=== PATIENT | female | born 1980 | race Two or more races ===

== ENCOUNTER 2024-05-24 19:12 | Emergency (ER) | payer MEDICAID, SELFPAY ==
[2024-05-24 19:12] VITALS: BMI 26.2
[2024-05-24 20:16] VITALS: BP 152/85; PULSE 91; RESP 17; TEMP 36.7; O2SAT 100
--- NOTE | 2024-05-24 20:32 | XR_ITS ---
Examination: Abdomen sonogram, Limited Date and time of exam: May 24, 20245 hrs. Indications: Epigastric pain vomiting beginning 2 days ago, cholecystectomy Technique: Real-time payne scale transabdominal sonographic images of the upper abdomen obtained. Findings: Absent gallbladder Normal common bile duct 0.3 cm Pancreatic head 2.8 cm Liver 14 cm fatty infiltration no focal liver lesions Normal hepatopedal portal venous flow Patent IVC Impression: Normal common bile duct Liver normal size no focal liver lesions
--- NOTE | 2024-05-24 20:32 | PD.EDRME ---
Rapid Medical Screening Exam RME Arrival date/time: 05/24/24 19:12 43-year-old female reports with complaints of 2 days of epigastric abdominal pain and bloating Chief Complaint: Abdominal Pain Time Seen by Provider: 05/24/24 19:24 Vital signs: Vital Signs Temperature 98.1 F 05/24/24 20:16 Pulse Rate 91 05/24/24 20:16 Respiratory Rate 17 05/24/24 20:16 Blood Pressure 152/85 H 05/24/24 20:16 Pulse Oximetry (%) 100 05/24/24 20:16 Oxygen Delivery Method Room Air 05/24/24 20:16
[2024-05-24 20:55] LABS: Collection Type, Urine Clean Catch
[2024-05-24 20:58] LABS: Basophils % (Auto) 0 % (0-2.5); Eosinophils # (Auto) 0.1 Thou/mm3 (0.0-0.5); Eosinophils % (Auto) 1 % (0-10); Hemoglobin 13.7 g/dL (12.0-16.0); Immature Granulocytes % (Auto) 1 % (0-0); Immature Granulocytes Auto 0.08 Thou/mm3 (0.00-0.00); Lymphocytes # (Auto) 2.3 Thou/mm3 (1.0-4.8); Lymphocytes % (Auto) 15 % (10-50); Mean Corpuscular HGB Conc 34.3 g/dl (31.0-37.0); Mean Corpuscular Hemoglobin 30.5 pg (25.0-35.0); Mean Corpuscular Volume 89 fL (80-100); Monocytes # (Auto) 0.9 Thou/mm3 (0.0-0.8); Monocytes % (Auto) 6 % (0-12); Neutrophils # (Auto) 12.2 Thou/mm3 (1.8-7.7); Neutrophils % (Auto) 78 % (37-80); Nucleated Red Blood Cell % 0 /100 WBC (0); Platelet Count 366 Thou/mm3 (140-440); RDW Standard Deviation 41.1 fL (36.4-46.3); Red Blood Count 4.49 Miln/mm3 (4.00-5.20); White Blood Count 15.6 Thou/mm3 (3.6-11.0)
[2024-05-24 21:08] LABS: HCG,Qualitative Serum Negative
[2024-05-24 21:12] LABS: Bacteria,Urine Rare; Bilirubin,Urine Negative (Negative); Blood,Urine Negative (Negative); Clarity,Urine Clear (Clear/Hazy); Color,Urine Lt-Yellow (Lt Yel-Yel); Culture Indicated,Urine Not Indicated; Glucose, Urine Negative (Negative); Ketones,Urine Negative (Negative); Leukocyte Esterase,Urine Negative (Negative); Nitrite,Urine Negative (Negative); PH,Urine 6.5 (5.0-7.0); Protein,Urine Trace (Neg - Trace); RBC,Urine 2 /hpf (0-3); Specific Gravity,Urine 1.028 (1.001-1.035); Squamous Epithelial Cell,Urine 5 /hpf (0-5); Urobilinogen,Urine Negative mg/dL (0.0-1.0); WBC,Urine 1 /hpf (0-5)
[2024-05-24 21:12] LABS: Alanine Aminotransferase 20 U/L (10-49); Albumin, Serum 4.1 gm/dL (3.5-5.0); Albumin/Globulin Ratio 1.5 (1.2-2.2); Alkaline Phosphatase 95 U/L (46-116); Anion Gap 5 (7-16); Aspartate Amino Transferase 17 U/L (0-34); BUN/Creatinine Ratio 25 Ratio (12-20); Bilirubin,Total 0.4 mg/dL (0.3-1.2); Blood Urea Nitrogen 15 mg/dL (9-23); Calcium 9.2 mg/dL (8.3-10.6); Calcium (Corrected) 9.2 mg/dL (8.5-10.1); Carbon Dioxide 28.6 mMol/L (20.0-31.0); Chloride 107 mMol/L (98-107); Creatinine (Component) 0.6 mg/dL (0.6-1.3); Estimated Creatinine Clearance 94.5 mL/min (>60); Globulin 2.8 gm/dL (2.3-3.5); Glucose 109 mg/dL (74-106); Lipase 67 U/L (12-53); Osmolality,Calculated 283 (275-295); Potassium 4.7 mMol/L (3.4-5.1); Sodium 141 mMol/L (136-145); Total Protein 6.9 gm/dL (5.7-8.2); eGFR > 60 See Note
--- NOTE | 2024-05-24 23:07 | EDNOTE_ITS ---
ED Abdominal Pain RME/HPI General Chief Complaint: Abdominal Pain Stated complaint: UPPER ABD PAIN X 2 DAYS Time seen by provider: 05/24/24 19:24 Arrival date/time: 05/24/24 19:12 43-year-old female past medical history of cholecystectomy presents emergency department complaining of intermittent epigastric pain and bloating for 2 days. Patient describes pain as burning and usually occurs after eating. Source: patient Mode of arrival: ambulatory Limitations: no limitations RME / HPI RME / HPI narrative: 05/24/24 19:12 43-year-old female reports with complaints of 2 days of epigastric abdominal pain and bloating Related Data Previous Rx's ?Medication ?Instructions ?Recorded hydrocodone 5 mg-acetaminophen 325 1 tab PO Q6H #20 tabs 03/16/ mg tablet (Hagerman) ibuprofen 800 mg tablet (IBU) 800 mg PO Q8H #20 tabs 08/08/23 omeprazole 20 mg capsule,delayed 20 mg PO QDAY #30 caps 05/24/24 release Allergies Allergy/AdvReac Type Severity Reaction Status Date / Time No Known Allergies Allergy Verified 05/24/24 19:15 Review of Systems Review of Systems Systems Reviewed: All systems reviewed, normal except as documented Constitutional Constitutional: Reports system reviewed and no additional complaints, except as documented, Denies body ache(s), Denies chills and Denies fever(s) Eyes Eyes: Reports system reviewed and no additional complaints, except as documented and Denies change in vision ENT Ears, Nose, Mouth, and Throat: Reports system reviewed and no additional complaints, except as documented, Denies disequilibrium, Denies dizziness, Denies sore throat and Denies vertigo Cardiovascular Cardiovascular: Reports system reviewed and no additional complaints, except as documented, Denies chest pain and Denies dyspnea Respiratory Respiratory: Reports system reviewed and no additional complaints, except as documented, Denies chest congestion, Denies cough and Denies dyspnea Gastrointestinal Gastrointestinal: Reports system reviewed and no additional complaints, except as documented, Reports abdominal pain, Reports dyspepsia, Denies nausea and Denies vomiting Musculoskeletal Musculoskeletal: Reports system reviewed and no additional complaints, except as documented, Denies abnormal gait and Denies arthralgias Integumentary/Breasts Skin/Breast: Reports system reviewed and no additional complaints, except as documented, Denies erythema, Denies rash and Denies wounds Neurologic Neurologic: Reports system reviewed and no additional complaints, except as documented, Denies abnormal gait, Denies disequilibrium, Denies dizziness and Denies vertigo Past Medical History Past Medical History NEUROLOGIC: Negative Neurological Disorders or Seizures CARDIAC: Negative Cardiac Disorders or Congestive Heart Failure RESPIRATORY: Negative Chronic Obstructive Pulmonary Disease (COPD) GASTROINTESTINAL: Positive Gastrointestinal Disorders and Gall Bladder Disease; Negative Hepatitis or Colorectal Cancer GENITOURINARY: Negative Genitourinary Disorders, Renal Disease or Prostate Cancer REPRODUCTIVE: Negative Breast Cancer or Testicular Cancer MUSCULOSKELETAL: Negative Musculoskeletal Disorders or Bone Cancer ENDOCRINE: Negative Endocrine Disorders, Diabetes Mellitus Type 1 or Diabetes Mellitus Type 2 HEMATOLOGIC: Negative Blood Disorders OTHER HISTORY: Negative Hospitalization, Autoimmune Disease, Down Syndrome, Developmental Delay, Shingles, Falls, Blood Transfusions, Blood Transfusion Reaction, Anesthesia Reactions, Organ Transplant, Chemotherapy, Radiation Therapy, Hyperbaric Therapy, MRSA, VRSA, Vancomycin-Resistant Enterococci, Human Immunodeficiency Virus (HIV), Chicken Pox, Measles, Mumps, Rubella (Portuguese Measles), Pertussis, Clostridium Difficile, Breast Cancer, Cervical Cancer, Colorectal Cancer, Lung Cancer, Ovarian Cancer, Prostate Cancer or Testicular Cancer Family History FAMILY HISTORY: Negative Family Psychiatric Problems, Family Respiratory Disorders, Family Cardiac Disorders, Family Gastrointestinal Problems, Family Cancer, Family Surgery or Family Anesthesia Reaction Surgical History SURGICAL: Negative Section or Organ Transplant Social History SMOKING STATUS: Never smoker SUBSTANCE USE: does not use ED Exam General Limitations: Present no limitations General appearance: Present alert and in no apparent distress Head Head exam: Present atraumatic Eye Eye exam: Present normal appearance, PERRL and EOMI ENT ENT exam: Present normal exam, normal oropharynx and mucous membranes moist Neck Neck exam: Present normal inspection, full ROM and trachea midline Chest Chest inspection: Present normal inspection and symmetric chest wall rise Respiratory Respiratory exam: Present normal lung sounds bilaterally Cardiovascular Cardiovascular exam: Present regular rate, normal rhythm and normal heart sounds Abdominal Exam Abdominal exam: Present soft and normal bowel sounds; Absent tenderness, guarding or tenderness at McBurney's Point Extremities Exam Extremities exam: Present normal inspection and full ROM Back Exam Back exam: Present normal inspection and full ROM Neurological Exam Neurological exam: Present alert, oriented X3 and CN II-XII intact Psychiatric Psychiatric exam: Present normal affect and normal mood Skin Skin exam: Present warm, dry, intact and normal color Course Quality Measures none Orders Category Date Time Status US abdomen limited Stat Exams 05/24/24 20:32 Completed CBC Stat Lab 05/24/24 20:41 Completed CMP [Comprehensive Metabolic Panel] Stat Lab 05/24/24 20:41 Completed HCG,Qualitative Serum Stat Lab 05/24/24 20:41 Completed Lipase Stat Lab 05/24/24 20:41 Completed UA, C/S IF [Urinalysis, C/S if Indicated] Stat Lab 05/24/24 20:51 Completed Famotidine [Pepcid] Med 05/24/24 23:07 Discontinued 40 mg PO X1 ONE Lidocaine 2% Viscous [Xylocaine 2% Viscous] Med 05/24/24 23:07 Discontinued 15 ml PO X1 ONE mg Hyd/Al Hyd/Cheyanne Susp [Maalox Susp] Med 05/24/24 23:07 Discontinued 30 ml PO X1 ONE Vital Signs Vital signs: Vital Signs Temperature 98.1 F 05/24/24 20:16 Pulse Rate 91 05/24/24 20:16 Respiratory Rate 17 05/24/24 20:16 Blood Pressure 152/85 H 05/24/24 20:16 Pulse Oximetry (%) 100 05/24/24 20:16 Oxygen Delivery Method Room Air 05/24/24 20:16 100% room air within normal limits Abdominal Pain MDM MDM Narrative MDM Narrative:: 43-year-old female past medical history of cholecystectomy presents emergency department complaining of intermittent epigastric pain and bloating for 2 days. Patient describes pain as burning and usually occurs after eating. CBC mild leukocytosis 15.6. CMP unremarkable. Urinalysis unremarkable. Ultrasound abdomen impression normal common bile duct. Patient's abdomen is soft and nontender. At time of exam patient reported pain was no longer present. Patient given GI cocktail and reported improvement in symptoms. Patient likely has gastritis versus peptic ulcer disease. Will discharge on omeprazole and instructed follow-up with primary care provider. Patient data External records reviewed:: [facility] previous records Clinical information provided by:: patient Social determinants that could affect healthcare access:: none Patient has the following chronic illnesses:: See chart How is presenting disease/condition affected by chronic disease/condition?: uneffected by Evaluation data The following diagnostics were reviewed and interpreted by me:: lab results and radiology exam(s) Lab and/or radiology exams considered but not ordered:: Ordered Interpretation Summary: Interpreted by me Medications / Prescriptions Medications or Prescriptions considered but not ordered:: Ordered Medication administrations:: Medication Administration History Discontinued Medications Al Hydrox/Mg Hydrox/Simethicone (Mg Hyd/Al Hyd/[place] (Maalox Reg) Susp 30 Ml Udc) 30 ml PO X1 ONE Stop: 05/24/24 23:08 Last Admin: 05/24/24 23:15 Dose: 30 ml Documented By: Famotidine (Famotidine 20 Mg Tablet) 40 mg PO X1 ONE Stop: 05/24/24 23:08 Last Admin: 05/24/24 23:14 Dose: 40 mg Documented By: Lidocaine HCl (Lidocaine Viscous 2% 15 Ml Udc) 15 ml PO X1 ONE Stop: 05/24/24 23:08 Last Admin: 05/24/24 23:15 Dose: 15 ml Documented By: Given Consultations Consultation(s) initiated? (list below): No Diagnosis Differential diagnosis abdominal pain: abdominal pain, acute appendicitis, calculus of kidney, constipation, diverticulitis, endometriosis, gastroenteritis, pancreatitis and small bowel obstruction Most likely diagnosis given after review of the tests above:: Gastritis Admission Indicated Admission indicated?: not indicated Admission Request Was there a request for admission?: No Disposition Plan Disposition Plan: Discharge Discharge Attestation Discharge Attestation: The patient and all family members were given an opportunity to ask questions and understood the discharge instructions. Discharge instructions specifically effects, indications for sooner follow up or return to the emergency department, and the expected course of current diagnosis. Patient condition: Stable Discharge Plan Plan Patient Disposition: HOME (Self Care) Disposition Comment: Stable Prescriptions/Referrals Prescriptions/Med Rec: New omeprazole 20 mg capsule,delayed release(DR/EC) 20 mg PO QDAY Qty: 30 0RF No Action hydrocodone-acetaminophen [Hagerman] 5-325 mg tablet 1 tab PO Q6H MDD 4 Qty: 20 0RF ibuprofen [IBU] 800 mg tablet 800 mg PO Q8H Qty: 20 0RF Referrals: Pro Tran [Primary Care Provider] - In 1 week Problem List Clinical Impression: Gastritis Patient/Caregiver Discharge Instructions Discharge Activity: activity as tolerated Education Materials: Treating Gastritis, ED Gastritis (Adult), ED PEPTIC ULCER vs GASTRITIS Additional Instructions: Avoid eating spicy and fatty food. Take medication as prescribed. Follow-up with primary care provider and request H. pylori testing or referral to GI specialist if symptoms persist. Return to the emergency department for any worsening symptoms or as needed. Print Language: Zambian Stand Alone Forms: Amy Award Info., Patient Portal Info Letter PA/ASSEMBLER MOVEMENT Supervising Physician PA/ASSEMBLER MOVEMENT Supervising Physician: Dr. Cox
[2024-05-24] MEDS: FAMOTIDINE 20 MG TABLET 40 MG PO (23:14)
[2024-05-24] MEDS: LIDOCAINE VISCOUS 2% 15 ML UDC PO (23:15)
[2024-05-24] MEDS: MG HYD/AL HYD/SIME (Maalox Reg) SUSP 30 ML UDC PO (23:15)
== END 2024-05-24 23:21 | disposition home or self-care (01) ==
PROVIDERS: Physician Assistant; Emergency Provider Emergency Medicine; PCP Physician Assistant
DX: K29.70 Gastritis, unspecified, without bleeding (principal)
CPT/HCPCS: 36415; 76705; 80053; 81001; 83690; 84703; 85025; 99284; J3490; A9270